=== PATIENT | male | born 1970 | race Caucasian/White ===

== ENCOUNTER 2025-03-05 12:28 | Emergency (ER) | payer BC, SELFPAY ==
[2025-03-05 12:51] VITALS: BP 157/97; PULSE 67; RESP 16; TEMP 36.4; O2SAT 98
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
[2025-03-05] MEDS: Acetaminophen 500 MG TAB 1000 MG PO (13:58)
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
== END 2025-03-05 14:28 | disposition home or self-care (01) ==
PROVIDERS: Emergency Provider Emergency Medicine
DX: S42.111A Displaced fracture of body of scapula, right shoulder, initial encounter for closed fracture (principal); V18.4XXA Pedal cycle driver injured in noncollision transport accident in traffic accident, initial encounter; Y92.482 Bike path as the place of occurrence of the external cause; Y93.55 Activity, bike riding
CPT/HCPCS: 99283; 73010; 73030